=== PATIENT | male | born 1985 | race Caucasian/White ===

== ENCOUNTER 2016-09-01 22:39 | Emergency (ER) | payer OTHER ==
[2016-09-01 22:51] VITALS: BP 152/95
[2016-09-01] MEDS ORDERED: Bupivacaine 0.5% 10 ML SDV INJECT ONE (23:11)
--- NOTE | 2016-09-01 23:56 | EDM.PDOC ---
ED HPI GENERAL MEDICAL PROBLEM - General Chief Complaint: ENT Problem Stated Complaint: TOOTH PAIN Time Seen by Provider: 09/01/16 23:02 Source of Information: Reports: Patient History Limitations: Reports: No Limitations - History of Present Illness INITIAL COMMENTS - FREE TEXT/NARRATIVE: The patient presents with left lower dental pain. He recently had a dental implant put in in the upper front jaw. He was on antibiotics for that. A few days ago he developed pain in the left lower jaw to a molar there. It looks like some fillings may have come out. He denies fever or chills. Onset: Gradual Duration: Day(s): Location: Reports: Face (Left lower jaw) Quality: Reports: Sharp Severity: Severe Improves with: Reports: None Worsens with: Reports: None Associated Symptoms: Reports: No Other Symptoms Left Lower Tooth/Teeth Pain Score (Numeric/FACES): 10 - Related Data Allergies Allergy/AdvReac Type Severity Reaction Status Date / Time No Known Allergies Allergy Verified 09/01/16 23:14 Past Medical History Musculoskeletal History: Reports: Fracture - Past Surgical History HEENT Surgical History: Reports: Other (See Below) Other HEENT Surgeries/Procedures: tooth implant Other Musculoskeletal Surgeries/Procedures:: r hand broken Social & Family History - Tobacco Use Smoking Status *Q: Current Every Day Smoker Years of Tobacco use: 10 Packs/Tins Daily: 1 Used Tobacco, but Quit: No - Caffeine Use Caffeine Use: Reports: Coffee - Recreational Drug Use Recreational Drug Use: No ED ROS ENT - Review of Systems Review Of Systems: See Below Constitutional: Reports: No Symptoms HEENT: Reports: Dental Pain Respiratory: Reports: No Symptoms Cardiovascular: Reports: No Symptoms Endocrine: Reports: No Symptoms GI/Abdominal: Reports: No Symptoms : Reports: No Symptoms Musculoskeletal: Reports: No Symptoms Skin: Reports: No Symptoms ED EXAM, ENT - Physical Exam Exam: See Below Exam Limited By: No Limitations General Appearance: Alert, No Apparent Distress Ears: Normal External Exam Nose: Normal Inspection Mouth/Throat: Other (Left lower jaw 1st molar has pain upon palpation and some edema) Course - Vital Signs Last Recorded V/S: Last Vital Signs Temp 97.5 F 09/01/16 22:47 Pulse 88 09/01/16 22:47 Resp 20 09/01/16 22:47 BP 152/95 H 09/01/16 22:47 Pulse Ox 97 09/01/16 22:47 - Orders/Labs/Meds Meds: Medications Discontinued Medications Generic Name Dose Route Start Last Admin Trade Name Marlin PRN Reason Stop Dose Admin Bupivacaine HCl 10 ml 09/01/16 23:11 Sensorcaine-Mpf 0.5% INJECT 09/01/16 23:12 ONETIME ONE - Re-Assessments/Exams Free Text/Narrative Re-Assessment/Exam: 09/01/16 23:53 I used 0.5% bupivicane to do a dental block to the left inferior alveolar nerve. He did have pain relief with that. I will give him some percocet penicillin for pain. Departure - Departure Time of Disposition: 23:55 Disposition: Home, Self-Care 01 Condition: good Clinical Impression: Pain, dental, Dental abscess - Discharge Information Referrals: Yaquelin Keys PA-C [Primary Care Provider] - Forms: ED Department Discharge Additional Instructions: Take the medication as prescribed. Follow up with your dentist. Please return if you are worse.
== END 2016-09-02 00:05 | disposition home or self-care (01) ==
LOC: JD.ED 22:39
DX: K04.7 Periapical abscess without sinus (principal); K08.89 Other specified disorders of teeth and supporting structures; F17.210 Nicotine dependence, cigarettes, uncomplicated
CPT/HCPCS: 64400; 99283-25

== ENCOUNTER 2016-09-07 17:14 | Emergency (ER) | payer OTHER ==
[2016-09-07 17:34] VITALS: BP 155/96
[2016-09-07] MEDS ORDERED: Clindamycin HCl 150 MG Cap PO ONE (17:52)
[2016-09-07] MEDS ORDERED: Acetaminophen/HYDROcodone 325-5 MG Tab PO ONE (17:53)
[2016-09-07] MEDS ORDERED: Ketorolac 60 MG/2 ML SDV IM ONE (17:53)
--- NOTE | 2016-09-07 17:56 | EDM.PDOC ---
ED HPI GENERAL MEDICAL PROBLEM - General Chief Complaint: ENT Problem Stated Complaint: TOOTH PAIN Time Seen by Provider: 09/07/16 17:45 Source of Information: Reports: Patient History Limitations: Reports: No Limitations - History of Present Illness INITIAL COMMENTS - FREE TEXT/NARRATIVE: Patient is a 30-year-old male who presents to the E.D. complaining of dental pain. He had the #19 tooth removed by dentist a few days ago. Since then he's noticed some increased swelling and some yellowish drainage coming from the site. Today states the pain has grown increasingly worse and took Tylenol with codeine with no relief. Thus he is here for the ED for further evaluation and treatment of pain and concerns for infection. He has been on penicillin recently. He denies fever or chills. 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 (see below) (See hpi) Right Lower Tooth/Teeth Pain Score (Numeric/FACES): 9 - Related Data Allergies Allergy/AdvReac Type Severity Reaction Status Date / Time No Known Allergies Allergy Verified 09/01/16 23:14 Home Meds: Home Meds Acetaminophen/HYDROcodone [Lamar 325-5 MG] 1 tab PO Q6H PRN #5 tablet 09/07/16 [ Rx] Clindamycin HCl 300 mg PO TID #30 capsule 09/07/16 [Rx] Past Medical History Musculoskeletal History: Reports: Fracture - Past Surgical History HEENT Surgical History: Reports: Other (See Below) Other HEENT Surgeries/Procedures: tooth implant Other Musculoskeletal Surgeries/Procedures:: r hand broken Social & Family History - Tobacco Use Smoking Status *Q: Current Every Day Smoker Years of Tobacco use: 15 Packs/Tins Daily: 1 Used Tobacco, but Quit: No - Caffeine Use Caffeine Use: Reports: Coffee - Recreational Drug Use Recreational Drug Use: No ED ROS ENT - Review of Systems Review Of Systems: See Below Constitutional: Reports: Decreased Appetite. Denies: Fever, Chills HEENT: Reports: Dental Pain GI/Abdominal: Denies: Nausea, Vomiting Musculoskeletal: Denies: Neck Pain ED EXAM, ENT - Physical Exam Exam: See Below Exam Limited By: No Limitations General Appearance: Alert, WD/WN, Mild Distress Eye Exam: Bilateral Eye: PERRL Ears: Hearing Grossly Normal, TM Obscured by Cerumen (bilaterally), Cerumen Impaction (bilaterally) Nose: Normal Inspection Mouth/Throat: Normal Oropharynx, Dental Tenderness (#19 tooth with mild erythema and yellowish drainge to the socket) Head: Atraumatic, Normocephalic Neck: Normal Inspection, Supple, Non-Tender, Full Range of Motion. No: Lymphadenopathy (L), Lymphadenopathy (R) Respiratory/Chest: No Respiratory Distress, No Accessory Muscle Use Cardiovascular: Normal Peripheral Pulses, Regular Rate, Rhythm Neurological: Alert, Oriented, CN II-XII Intact, Normal Cognition, No Motor/ Sensory Deficits Psychiatric: Normal Affect, Normal Mood Skin: Warm, Dry, Intact, Normal Color Course - Vital Signs Last Recorded V/S: Last Vital Signs Temp 97.2 F 09/07/16 17:33 Pulse 85 09/07/16 17:33 Resp 20 09/07/16 17:33 BP 155/96 H 09/07/16 17:33 Pulse Ox 99 09/07/16 17:33 - Orders/Labs/Meds Orders: Active Orders 24 hr Category Date Time Status Ear Irrigation [RC] ASDIRECTED Care 09/07/16 17:52 Active Meds: Medications Discontinued Medications Generic Name Dose Route Start Last Admin Trade Name Marlonq PRN Reason Stop Dose Admin Hydrocodone Bitart/Acetaminophen 1 tab 09/07/16 17:53 09/07/16 18:16 Lamar 325-5 Mg PO 09/07/16 17:54 1 tab ONETIME ONE Administration Clindamycin HCl 450 mg 09/07/16 17:52 09/07/16 18:16 Cleocin PO 09/07/16 17:53 450 mg ONETIME ONE Administration Ketorolac Tromethamine 60 mg 09/07/16 17:53 09/07/16 18:18 Toradol IM 09/07/16 17:54 60 mg ONETIME ONE Administration - Re-Assessments/Exams Free Text/Narrative Re-Assessment/Exam: #19 tooth was recently pulled. Completed course of PCN.Appears patient has dry socket with mild infection around socket. Left inferior alveolar block performed with bupivacaine. Patients pain to the affected tooth completely resolved. Continues to have pain radiating to the left ear. TM's obscured by cerumen bilaterally. Ordered clindamycin 450mg PO and ear irrigation bilaterally. In addition for pain ordered norco 5/325 1 tab po and toradol 60mg IM. 09/07/16 19:54 Cerumen removed. TMS normal bilaterally. Pain to ear and tooth drastically improved with the above therapies. Patient ready to be discharged home. Departure - Departure Time of Disposition: 19:55 Disposition: Home, Self-Care 01 Condition: good Clinical Impression: Infected tooth - Discharge Information Prescriptions: Acetaminophen/HYDROcodone [Lamar 325-5 MG] 1 tab PO Q6H PRN #5 tablet PRN Reason: Pain (Severe 7-10) Clindamycin HCl 300 mg PO TID #30 capsule Instructions: Dental Abscess, [id number] Referrals: Yaquelin Keys PA-C [Primary Care Provider] - Forms: ED Department Discharge Additional Instructions: Take the full course of antibiotics as prescribed. Suggest taking oral probiotic while taking the antibiotic. For pain utilize ibuprofen 600 mg every 6 hours, Tylenol 650 mg every 4-6 hours in alternating fashion. For severe pain take Lamar one tablet every 6 hours. Push fluids. Do not take Tylenol and Lamar at the same time. Call and make an appointment with dentist that extracted your tooth for further evaluation and treatment. Return to ED for any new or worsening symptoms. No driving this evening since receiving any sedative medication in the ED and while taking norco. - My Orders Last 24 Hours: My Active Orders 09/07/16 17:52 Ear Irrigation [RC] ASDIRECTED - Assessment/Plan Last 24 Hours: My Active Orders 09/07/16 17:52 Ear Irrigation [RC] ASDIRECTED
== END 2016-09-07 20:00 | disposition home or self-care (01) ==
LOC: JD.ED 17:14
DX: K04.7 Periapical abscess without sinus (principal); H61.23 Impacted cerumen, bilateral; F17.210 Nicotine dependence, cigarettes, uncomplicated
CPT/HCPCS: 64400; 69209; 96372; 99283; A9270; J1885

== ENCOUNTER 2017-02-25 12:31 | Emergency (ER) | payer OTHER ==
[2017-02-25 12:53] VITALS: BP 178/101
--- NOTE | 2017-02-25 13:32 | CT ---
Head CT Technique: Multiple axial sections were obtained through the brain. Intravenous contrast was not utilized. Comparison: No prior study. Findings: Opacified left maxillary sinus is seen with soft tissue material extending into the nasal cavity and almost occluding the posterior nasal cavity. Difficult to exclude an inverting polyp. Ventricles along with basal cisterns and sulci over convexities are within normal limits. No abnormal parenchymal densities are seen. No evidence of intracranial hemorrhage. No midline shift or mass effect is seen. Bone window settings were reviewed which shows no acute calvarial abnormality. Mild mucosal thickening is noted within the frontal and ethmoid sinuses. Impression: 1. Opacified left maxillary sinus with soft tissue material extending into the nasal cavity and almost occluding the posterior nasal cavity. Difficult to exclude an inverting polyp. Referral to ENT could be considered to determine whether surgery is indicated. 2. Other sinus findings which are felt to be incidental. 3. No acute intracranial abnormality is seen. Diagnostic code #3
--- NOTE | 2017-02-25 14:10 | CT ---
CT cervical spine Technique: Multiple axial sections were obtained from above C1 inferiorly to the bottom of T1. Reconstructed sagittal and coronal images were reviewed. Findings: Mastoid sinuses and middle ear cavities are clear. Posterior skull base is intact. Vertebral bodies and disc spaces are maintained in height. Vertebral bodies and posterior arches are intact with no fracture being seen. No bony central or bony neural foraminal stenosis is seen. No abnormal subluxation is seen on the reconstructed sagittal images. Very minimal scattered degenerative change is seen. Impression: 1. Nothing acute is appreciated on CT study of the cervical spine. Diagnostic code #1
--- NOTE | 2017-02-25 14:39 | EDM.PDOC ---
ED HPI GENERAL MEDICAL PROBLEM - General Chief Complaint: Neck Problem Stated Complaint: NECK, SHOULDER, AND BACK PAIN Time Seen by Provider: 02/25/17 12:50 Source of Information: Reports: Patient History Limitations: Reports: No Limitations - History of Present Illness INITIAL COMMENTS - FREE TEXT/NARRATIVE: The patient was riding horse a few days ago and he was off the horse and the horse ran into him and knocked him over and he landed into a fence. He had no LOC. He had some neck pain. He went to the chiropractor and he did an adjustment and x-rays. That did not help much he went back today and did another treatment and now he cannot move his neck. He also has some numbness to the left arm. He has some weakness due to pain in the left arm. He has a headache now. He has no vision changes. He has no chest pain, abdominal pain, or hip pain. He denies vision changes. Onset: Sudden Duration: Week(s): (2) Location: Reports: Head, Neck Quality: Reports: Sharp Severity: Severe Improves with: Reports: None Worsens with: Reports: None Context: Reports: Other (Got rolled by his horse) Associated Symptoms: Reports: Headaches. Denies: Chest Pain, Cough, Fever/ Chills, Nausea/Vomiting, Shortness of Breath - Related Data Allergies Allergy/AdvReac Type Severity Reaction Status Date / Time No Known Allergies Allergy Verified 02/25/17 12:43 Home Meds: Home Meds Cyclobenzaprine [Flexeril] 10 mg PO TID PRN #20 tablet 02/25/17 [Rx] Hydrocodone/Acetaminophen [Hydrocodon-Acetaminophen 5-325] 1 - 2 each PO Q6HR PRN #20 tablet 02/25/17 [Rx] Past Medical History Musculoskeletal History: Reports: Fracture - Past Surgical History HEENT Surgical History: Reports: Other (See Below) Other HEENT Surgeries/Procedures: tooth implant Other Musculoskeletal Surgeries/Procedures:: r hand broken Social & Family History - Tobacco Use Smoking Status *Q: Former Smoker Years of Tobacco use: 15 Packs/Tins Daily: 1 Used Tobacco, but Quit: No - Caffeine Use Caffeine Use: Reports: Coffee - Recreational Drug Use Recreational Drug Use: No ED ROS GENERAL - Review of Systems Review Of Systems: See Below Constitutional: Reports: No Symptoms HEENT: Reports: No Symptoms Respiratory: Reports: No Symptoms Cardiovascular: Reports: No Symptoms Endocrine: Reports: No Symptoms GI/Abdominal: Reports: No Symptoms : Reports: No Symptoms Musculoskeletal: Reports: Neck Pain Skin: Reports: No Symptoms Neurological: Reports: Headache, Numbness (Left arm) ED EXAM, UPPER BACK/NECK PAIN - Physical Exam Exam: See Below Exam Limited By: No Limitations General Appearance: Alert, No Apparent Distress Ears Exam: Normal External Exam Nose Exam: Normal Inspection Head Exam: Atraumatic, Normocephalic Neck Exam: Other (Pain upon palpation and stiffness to the left side of his neck.) Cardiovascular/Respiratory: Regular Rate, Rhythm, No M/R/G, Normal Peripheral Pulses, Normal Breath Sounds, No Respiratory Distress GI/Abdominal: Soft, Non-Tender, No Organomegaly, No Mass Extremities: Other (Mild numbness to gross palpation to the left arm. Good strenght bilateral.) Neurologic: Alert, Normal Mood/Affect, Oriented x 3, Other (No motor deficits. Mild gross decreased sensation to the left arm) Course - Vital Signs Last Recorded V/S: Last Vital Signs Temp 98.5 F 02/25/17 12:46 Pulse 102 H 02/25/17 12:46 Resp 18 02/25/17 12:46 BP 178/101 H 02/25/17 12:46 Pulse Ox 100 02/25/17 12:46 - Re-Assessments/Exams Free Text/Narrative Re-Assessment/Exam: 02/25/17 14:[address] of her cervical spine that showed nothing acute appreciated. The CT of his head shows opacified left maxillary sinus with soft tissue material extending into the nasal cavity and almost occluding the posterior nasal cavity. Difficult to exclude an inverting polyp. Referral to ENT could be considered to determine wether surgery is indicated. Other sinus findings which are felt to be incidental. No acute intracranial abnormality is seen. I ordered some dilaudid 1mg IM and valium 5mg PO. I will get him on some flexeril and some hydrocodone for pain. Departure - Departure Time of Disposition: 15:00 Disposition: Home, Self-Care 01 Condition: Good Clinical Impression: Neck pain, Torticollis, acute - Discharge Information Prescriptions: Hydrocodone/Acetaminophen [Hydrocodon-Acetaminophen 5-325] 1 - 2 each PO Q6HR PRN #20 tablet PRN Reason: Pain Cyclobenzaprine [Flexeril] 10 mg PO TID PRN #20 tablet PRN Reason: Pain Referrals: Yaquelin Keys PA-C [Primary Care Provider] - 1 Week Additional Instructions: Take the flexeril and hydrocodone as needed for pain. Follow up with your chiropractor. Please return if you are worse.
[2017-02-25] MEDS ORDERED: HYDROmorphone 1 MG/ML Syringe IM ONE (14:42)
[2017-02-25] MEDS ORDERED: Diazepam 5 MG Tab PO ONE (14:43)
== END 2017-02-25 15:20 | disposition home or self-care (01) ==
LOC: JD.ED 12:31
DX: M43.6 Torticollis (principal); Z87.891 Personal history of nicotine dependence
CPT/HCPCS: 70450; 72125; 96372; 99283; A9270; J1170